=== PATIENT | female | born 1935 | race Native Hawaiian/Other Pacific Islander ===

== ENCOUNTER 2021-06-05 12:09 | Outpatient (CLI) | payer OTHER, MEDICARE ==
[~2021-06-05 12:09] MED LIST: ARMOUR THYROID120 MG PO; ERYTHROMYCI3 OPTH; NEURONTIN 100M100 MG PO
== END 2021-06-05 19:00 | disposition home or self-care (01) ==
LOC: LAB 12:09
PROVIDERS: ATTEND Nurse Practitioner Family
DX: R53.83 Other fatigue (principal)
CPT/HCPCS: 81000

== ENCOUNTER 2021-07-18 12:45 | Outpatient (CLI) | payer OTHER, MEDICARE | END 2021-07-18 19:13 | disposition home or self-care (01) | LOC: LAB 12:45 | PROVIDERS: ATTEND Family Medicine | DX: R41.82 Altered mental status, unspecified (principal); N39.0 Urinary tract infection, site not specified | CPT/HCPCS: 81000; 87077; 87086; 87088; 87185; 87186 ==

== ENCOUNTER 2021-09-13 10:04 | Outpatient (CLI) | payer OTHER, MEDICARE | END 2021-09-13 20:16 | disposition home or self-care (01) | LOC: LAB 10:04 | PROVIDERS: ATTEND Family Medicine | DX: N39.0 Urinary tract infection, site not specified (principal) | CPT/HCPCS: 81000; 87086; 87088 ==

== ENCOUNTER 2021-10-15 17:08 | Outpatient (CLI) | payer OTHER, MEDICARE | END 2021-10-15 18:55 | disposition home or self-care (01) | LOC: LAB 17:08 | PROVIDERS: ATTEND Nurse Practitioner Family | DX: R30.9 Painful micturition, unspecified (principal) | CPT/HCPCS: 81000; 87088 ==